=== PATIENT | male | born 1985 | race Hispanic/Latino ===

== ENCOUNTER 2020-11-15 09:40 | Inpatient (IN) | payer SELFPAY ==
[2020-11-15 11:26] LABS: Absolute Lymphocytes (CBC) 1.2 K/uL (0.7-4.9); Basophils % 0.2 % (0-1.3); Hematocrit 36.9 % (39.6-49.0); Lymphocytes % 5.9 % (15.3-44.8); RBC Red Blood Cell Count 3.92 M/uL (4.33-5.43)
[2020-11-15] MEDS ORDERED: ONDANSETRON 4 MG/2 ML VIAL ONE (11:29)
[2020-11-15] MEDS ORDERED: MORPHINE 4 MG/ML SYR ONE (11:29)
[2020-11-15] MEDS ORDERED: CEFTRIAXONE/SWI 1gm 1 GM/10 ML SYR ONE (11:30)
[2020-11-15] MEDS ORDERED: NA CHLORIDE 0.9% 1,000 ML ONE (11:30)
[2020-11-15 12:46] LABS: Potassium 3.1 mmol/L (3.5-5.1)
--- NOTE | 2020-11-15 12:57 | RAD REPORT ---
EXAM DESCRIPTION: CT - Abdomen Pelvis W Contrast - 11/15/2020 12:33 pm CLINICAL HISTORY: Abdominal pain COMPARISON: none. TECHNIQUE: Computed axial tomography of the abdomen pelvis was obtained. 100 cc Isovue-300 was admin istered intravenously. Oral contrast was not requested which limits evaluation of bowel. All CT scans are performed using dose optimization technique as appropriate and may include automated exposure control or mA/KV adjustment according to patient size. FINDINGS: Fatty liver. Spleen, pancreas, adrenal and kidneys appear unremarkable. There is no evidence of diverticulitis. Normal appendix. Probable small bilateral inguinal hernias co ntaining fat. Scrotal skin thickening. Stranding within the perineum. No abscess seen Small to moderate right hydrocele IMPRESSION: Scroll skin thickening. Stranding within the perineum. This indicates inflammation or in fection. No abscess visualized
[2020-11-15] MEDS ORDERED: FENTANYL CITR 100 MCG/2 ML ONE (13:11)
[2020-11-15 13:25] LABS: Blood Morphology Comment NOT SEEN (NOT SEEN); Platelet Estimate DECR
--- NOTE | 2020-11-15 14:07 | RAD REPORT ---
EXAM DESCRIPTION: US - Scrotum Testicles - 11/15/2020 10:43 am CLINICAL HISTORY: testicular pain Preliminary findings provided at the time of the study. COMPARISON: No comparisons FINDINGS: Testicular tissue is homogeneous with no mass lesions identifiable. Doppler evaluation cecy ws good blood flow within each testicle. Small hydroceles are present. Mild enlargement and hyperemia of each epididymis. Varicoceles are doubtful. Prominent scrotal wall thickening and edema seen. No abscess or drainable fluid collection. IMPRESSION: Pronounced scrotal wall thickening and edema. No abscess or drainable fluid collections seen. Prominent, hyperemic epididymis tissue. Normal blood flow in each testicle and no testicular mass les ion.
--- NOTE | 2020-11-15 14:15 | EDPHYS ---
Physician Documentation [facility] Name: Adithya Morales Age: 35 yrs Sex: Male : 1985 Arrival Date: 11/15/2020 Time: 09:46 Bed 15 Private MD: ED Physician Clinton Grayson HPI: 11/15 11:04 This 35 yrs old Male presents to ER via Ambulatory with complaints of kdr Testicular Swelling, Penile Pain. 11:04 The patient presents with scrotal pain, swelling, that is moderate, of the left kdr testicle, right testicle, perineum and scrotum, tenderness, that is moderate. Onset: The symptoms/episode began/occurred gradually, 2 day(s) ago. Modifying factors: The symptoms are alleviated by nothing, the symptoms are aggravated by movement. Associated signs and symptoms: Pertinent positives: chills and inguinal pain, Pertinent negatives:. Severity of symptoms: At their worst the symptoms were mild, just prior to arrival. The patient has not experienced similar symptoms in the past. The patient has not recently seen a physician. Historical: - Allergies: 10:03 No Known Allergies; dm5 - Home Meds: 10:03 None [Active]; dm5 - PMHx: 10:03 None; dm5 - PSHx: 10:03 None; dm5 - Immunization history:: Adult Immunizations unknown. - Social history:: Smoking status: Patient reports the use of cigarette tobacco products, smokes one-half pack cigarettes per day, Reported history of juuling and/or vaping. ROS: 11:04 Constitutional: Negative for fever, chills, and weight loss, Eyes: Negative for injury, kdr pain, redness, and discharge, ENT: Negative for injury, pain, and discharge, Neck: Negative for injury, pain, and swelling, Cardiovascular: Negative for chest pain, palpitations, and edema, Respiratory: Negative for shortness of breath, cough, wheezing, and pleuritic chest pain, Abdomen/GI: Negative for abdominal pain, nausea, vomiting, diarrhea, and constipation, Back: Negative for injury and pain, MS/Extremity: Negative for injury and deformity, Skin: Negative for injury, rash, and discoloration, Neuro: Negative for headache, weakness, numbness, tingling, and seizure activity. Psych: Negative for depression, anxiety, suicide ideation, homicidal ideation, and hallucinations, Allergy/Immunology: Negative for hives, rash, and allergies, Endocrine: Negative for neck swelling, polydipsia, polyuria, polyphagia, and marked weight changes, Hematologic/Lymphatic: Negative for swollen nodes, abnormal bleeding, and unusual bruising. 11:04 : Positive for penile pain, testicular pain of the perineum and scrotum. Exam: 11:04 Constitutional: This is a well developed, well nourished patient who is awake, alert, kdr and in no acute distress. Head/Face: Normocephalic, atraumatic. Eyes: Pupils equal round and reactive to light, extra-ocular motions intact. Lids and lashes normal. Conjunctiva and sclera are non-icteric and not injected. Cornea within normal limits. Periorbital areas with no swelling, redness, or edema. Neck: Trachea midline, no thyromegaly or masses palpated, and no cervical lymphadenopathy. Supple, full range of motion without nuchal rigidity, or vertebral point tenderness. No Meningismus. Chest/axilla: Normal chest wall appearance and motion. Nontender with no deformity. No lesions are appreciated. Cardiovascular: Regular rate and rhythm with a normal S1 and S2. No gallops, murmurs, or rubs. Normal PMI, no JVD. No pulse deficits. Respiratory: Lungs have equal breath sounds bilaterally, clear to auscultation and percussion. No rales, rhonchi or wheezes noted. No increased work of breathing, no retractions or nasal flaring. Abdomen/GI: Soft, non-tender, with normal bowel sounds. No distension or tympany. No guarding or rebound. No evidence of tenderness throughout. Back: No spinal tenderness. No costovertebral tenderness. Full range of motion. Skin: Warm, dry with normal turgor. Normal color with no rashes, no lesions, and no evidence of cellulitis. MS/ Extremity: Pulses equal, no cyanosis. Neurovascular intact. Full, normal range of motion. Neuro: Awake and alert, GCS 15, oriented to person, place, time, and situation. Cranial nerves II-XII grossly intact. Motor strength 5/5 in all extremities. Sensory grossly intact. Cerebellar exam normal. Normal gait. Psych: Awake, alert, with orientation to person, place and time. Behavior, mood, and affect are within normal limits. 11:04 : CVA tenderness, is absent, Male external genitalia: Patient is not circumisioned. penile discharge, is absent, swelling: of the perineum and scrotum is noted, scrotal, that is moderate, that is severe, tenderness, of the perineum is noted, that is mild. Vital Signs: 10:01 BP 120 / 81; Pulse 106; Resp 20; Temp 99.5; Pulse Ox 100% ; Weight 81.65 kg; Height 5 dm5 ft. 7 in. (170.18 cm); Pain 10/10; 13:06 BP 119 / 73; Pulse 103; Resp 16; Pulse Ox 99% ; sv 13:45 BP 110 / 66; Pulse 100; Resp 18; Pulse Ox 100% ; sv 14:30 BP 95 / 53; Pulse 99; Resp 16; Pulse Ox 100% ; sv 15:15 BP 104 / 77; Pulse 100; Resp 16; Pulse Ox 100% ; sv 10:01 Body Mass Index 28.19 (81.65 kg, 170.18 cm) dm5 MDM: 14:15 Patient medically screened. kdr 14:15 Data reviewed: vital signs, nurses notes, lab test result(s), radiologic studies. kdr Counseling: I had a detailed discussion with the patient and/or guardian regarding: the historical points, exam findings, and any diagnostic results supporting the discharge/admit diagnosis, lab results, radiology results, the need for outpatient follow up. 11/15 11:18 Order name: Urine Culture [facility] 11/15 13:24 Order name: CBC with Automated Diff EDNJ 11/15 13:26 Order name: Manual Differential EDNJ 11/15 13:29 Order name: Procalcitonin EDN[facility] 11/15 13:29 Order name: Basic Metabolic Panel EDNJ 11/15 13:29 Order name: Lactate EDN[facility] 11/15 13:38 Order name: Blood Culture EDN[facility] 11/15 13:38 Order name: Blood Culture EDN[facility] 11/15 13:38 Order name: CREATININE WHOLE BLOOD EDNJ 11/15 10:01 Order name: US Scrotum Testicles dm5 11/15 10:55 Order name: CT Abd/Pelvis - IV Contrast Only kdr 11/15 13:15 Order name: CT EDMS 11/15 13:20 Order name: Scrotum Testicles EDNJ 11/15 14:23 Order name: Basic Metabolic Panel EDNJ 11/15 14:23 Order name: Basic Metabolic Panel EDNJ 11/15 14:24 Order name: Lactate EDNJ 11/15 14:25 Order name: Magnesium EDNJ 11/15 14:25 Order name: Phosphorus EDNJ 11/15 14:25 Order name: Procalcitonin EDN[facility] 11/15 14:25 Order name: Urinalysis W/Microscopic EDN[facility] 11/15 11:39 Order name: Labs - recollect needed: please recollect all blood; Complete Time: 12:18 eb 11/15 14:24 Order name: CONS Pharmacy Consult EDNJ 11/15 14:24 Order name: CONS Pharmacy Consult EDNJ 11/15 14:24 Order name: CONS Physician Consult EDNJ 11/15 14:24 Order name: Heart Healthy EDNJ Administered Medications: 11:15 Drug: NS 0.9% 1000 ml Route: IV; Rate: 1 bolus; Site: right antecubital; sv 11:15 Drug: Zofran (Ondansetron) 4 mg Route: IVP; Site: right antecubital; sv 12:18 Follow up: Response: No adverse reaction sv 11:17 Drug: morphine 4 mg Route: IVP; Site: right antecubital; sv 12:18 Follow up: Response: No adverse reaction; RASS: Alert and Calm (0) sv 11:18 Drug: Rocephin - (cefTRIAXone) 1 grams Route: IVPB; Infused Over: 30 mins; Site: right sv antecubital; 11:20 Follow up: Response: No adverse reaction; IV Status: Completed infusion; IV Intake: 10mlsv 13:03 Drug: fentaNYL (PF) 50 mcg {Note: rass2.} Route: IVP; Site: right antecubital; sv 15:49 Drug: vancoMYCIN 1.5 grams Route: IVPB; Rate: calculated rate; Site: right antecubital; sv 16:27 Follow up: Response: No adverse reaction; IV Status: Infusion continued upon admission sv Disposition: 11/15/20 14:15 Hospitalization ordered by Maribel Durant for Inpatient Admission. Preliminary diagnosis is Scrotal Cellulitis and cellulitis of the perineum. - Bed requested for Telemetry/MedSurg (Inpatient). - Status is Inpatient Admission. sv - Condition is Fair. - Problem is new. - Symptoms have improved. Signatures: Dispatcher [employer] EDMS Carolyn Hampton, RN RN dmLiss Metzger, RN Carmita Herr RN RN Clinton Hua MD MD kdr Botello, Elizabeth eb Corrections: (The following items were deleted from the chart) 14:19 13:16 CBC+H.LAB.BRZ ordered. EDMS EDMS 14:27 13:16 BASIC METABOLIC PANEL+C.LAB.BRZ ordered. EDMS EDMS 14:27 13:16 LACTATE+C.LAB.BRZ ordered. EDMS EDMS 14:27 13:16 Procalcitonin+C.LAB.BRZ ordered. EDMS EDMS 14:27 13:16 BLOOD CULTURE*+BA.LAB.BRZ ordered. EDNJ EDMS 15:37 14:15 Hospitalization Ordered by Maribel Durant MD for Inpatient Admission. Preliminary diagnosis is Scrotal Cellulitis and cellulitis of the perineum. Bed requested for Telemetry/MedSurg (Inpatient). Status is Inpatient Admission. Condition is Fair. Problem is new. Symptoms have improved. [facility] 16:26 15:37 11/15/2020 14:15 Hospitalization Ordered by Maribel Durant MD for Inpatient sv Admission. Preliminary diagnosis is Scrotal Cellulitis and cellulitis of the perineum. Bed requested for Telemetry/MedSurg (Inpatient). Status is Inpatient Admission. Condition is Fair. Problem is new. Symptoms have improved. dw
--- NOTE | 2020-11-15 14:15 | ER ---
Nurse's Notes [facility] Name: Adithya Morales Age: 35 yrs Sex: Male : 1985 Arrival Date: 11/15/2020 Time: 09:46 Bed 15 Private MD: Diagnosis: Scrotal Cellulitis and cellulitis of the perineum Presentation: 11/15 10:01 Chief complaint: Patient states: swelling, redness and pain to testicles. Coronavirus dm5 screen: Client denies travel out of the [place] in the last 14 days. At this time, the client does not indicate any symptoms associated with coronavirus-19. Ebola Screen: Patient negative for fever greater than or equal to 101.5 degrees Fahrenheit, and additional compatible Ebola Virus Disease symptoms Patient denies exposure to infectious person. Patient denies travel to an Ebola-affected area in the 21 days before illness onset. No symptoms or risks identified at this time. Initial Sepsis Screen: Does the patient meet any 2 criteria? HR > 90 bpm. Does the patient have a suspected source of infection? No. Patient's initial sepsis screen is negative. Risk Assessment: Do you want to hurt yourself or someone else? Patient reports no desire to harm self or others. Onset of symptoms was November 13, 2020. 10:01 Method Of Arrival: Ambulatory dm5 10:01 Acuity: NAYELY 2 dm5 Triage Assessment: 10:03 General: Appears uncomfortable, Behavior is calm, cooperative. Pain: Complains of pain dm5 in scrotum Pain does not radiate. Pain currently is 10 out of 10 on a pain scale. Pain began 2-3 days ago. Is continuous. Historical: - Allergies: 10:03 No Known Allergies; dm5 - Home Meds: 10:03 None [Active]; dm5 - PMHx: 10:03 None; dm5 - PSHx: 10:03 None; dm5 - Immunization history:: Adult Immunizations unknown. - Social history:: Smoking status: Patient reports the use of cigarette tobacco products, smokes one-half pack cigarettes per day, Reported history of juuling and/or vaping. Screenin:15 Abuse screen: Denies threats or abuse. Denies injuries from another. Nutritional sv screening: No deficits noted. Tuberculosis screening: No symptoms or risk factors identified. Fall Risk None identified. Assessment: 10:26 Reassessment: Pt currently in US. sv 11:15 General: Appears in no apparent distress. uncomfortable, well groomed, well developed, sv Behavior is calm, cooperative, appropriate for age. Pain: Complains of pain in scrotum Pain currently is 10 out of 10 on a pain scale. Pain began 2-3 days ago. Is continuous. Neuro: Level of Consciousness is awake, alert, obeys commands, Oriented to person, place, time, situation, Moves all extremities. Full function Gait is steady. Respiratory: Airway is patent Respiratory effort is even, unlabored, Respiratory pattern is regular, symmetrical. Derm: Skin is intact, Skin is pink, warm \T\ dry. Reports redness and swelling to the scrotum. 15:42 Reassessment: Attempted to call report, nurse unavailable. sv Vital Signs: 10:01 BP 120 / 81; Pulse 106; Resp 20; Temp 99.5; Pulse Ox 100% ; Weight 81.65 kg; Height 5 dm5 ft. 7 in. (170.18 cm); Pain 10/10; 13:06 BP 119 / 73; Pulse 103; Resp 16; Pulse Ox 99% ; sv 13:45 BP 110 / 66; Pulse 100; Resp 18; Pulse Ox 100% ; sv 14:30 BP 95 / 53; Pulse 99; Resp 16; Pulse Ox 100% ; sv 15:15 BP 104 / 77; Pulse 100; Resp 16; Pulse Ox 100% ; sv 10:01 Body Mass Index 28.19 (81.65 kg, 170.18 cm) dm5 ED Course: 09:46 Patient arrived in ED. rg4 09:49 Clinton Grayson MD is Attending Physician. kdr 10:03 Triage completed. dm5 10:04 Arm band placed on left wrist. dm5 10:26 Liss Whipple RN is Primary Nurse. sv 10:26 Patient taken to ultrasound. via wheelchair. is 11:15 Patient has correct armband on for positive identification. Placed in gown. Bed in low sv position. Call light in reach. Pulse ox on. NIBP on. 11:17 Inserted saline lock: 20 gauge in right antecubital area, using aseptic technique. ll1 Blood collected. 12:[address] via wheelchair. sv 12:16 Lab(s) recollected, by tanbark laborer, sent to lab. sv 13:20 Scrotum Testicles In Process Unspecified. EDMS 14:14 Maribel Durant MD is Hospitalizing Provider. kdr 14:20 CREATININE WHOLE BLOOD Sent. sv 14:20 Basic Metabolic Panel Sent. sv 14:20 Lactate Sent. sv 14:20 CT Abd/Pelvis - IV Contrast Only Sent. sv 14:20 US Scrotum Testicles Sent. sv 15:56 No provider procedures requiring assistance completed. Patient admitted, IV remains in sv place. intact. Administered Medications: 11:15 Drug: NS 0.9% 1000 ml Route: IV; Rate: 1 bolus; Site: right antecubital; sv 11:15 Drug: Zofran (Ondansetron) 4 mg Route: IVP; Site: right antecubital; sv 12:18 Follow up: Response: No adverse reaction sv 11:17 Drug: morphine 4 mg Route: IVP; Site: right antecubital; sv 12:18 Follow up: Response: No adverse reaction; RASS: Alert and Calm (0) sv 11:18 Drug: Rocephin - (cefTRIAXone) 1 grams Route: IVPB; Infused Over: 30 mins; Site: right sv antecubital; 11:20 Follow up: Response: No adverse reaction; IV Status: Completed infusion; IV Intake: 10mlsv 13:03 Drug: fentaNYL (PF) 50 mcg {Note: rass2.} Route: IVP; Site: right antecubital; sv 15:49 Drug: vancoMYCIN 1.5 grams Route: IVPB; Rate: calculated rate; Site: right antecubital; sv 16:27 Follow up: Response: No adverse reaction; IV Status: Infusion continued upon admission sv Intake: 11:20 IV: 10ml; Total: 10ml. sv Outcome: 14:15 Decision to Hospitalize by Provider. kdr 16:25 Admitted to Med/surg accompanied by tech, via stretcher, with chart, Report called to Tootie RANGEL 16:25 Condition: stable 16:25 Instructed on the need for admit. 16:26 Patient left the ED. sv Signatures: Dispatcher [employer] EDWI Carolyn Hampton RN RN dm5 Liss Whipple RN RN Clinton Grayson MD MD kdr Garcia, Rubi rg4 Sims, Cynthia is Sejal Grossman, RN RN ll1
[2020-11-15] MEDS ORDERED: ONDANSETRON 4 MG/2 ML VIAL IV PRN (14:19)
[2020-11-15] MEDS ORDERED: MORPHINE 4 MG/ML SYR IV PRN (14:19)
[2020-11-15] MEDS ORDERED: VANCOMYCIN/NS 1 gm 1 GM/250 ML BAG IVPB SCH (15:00)
[2020-11-15] MEDS ORDERED: VANCOMYCIN 1.5 GM in NA CHLORIDE 0.9% 500 ML IVPB ONE (16:00)
[2020-11-15] MEDS: NA CHLORIDE 0.9% 1,000 ML IV SCH (17:02)
[2020-11-15 17:30] VITALS: BMI 27.8
[2020-11-15] MEDS: PIPER/TAZO/NS 4.5gm 4.5 GM/100 ML BAG IVPB SCH (18:37)
[2020-11-15 19:08] LABS: Urine Appearance CLEAR; Urine Bilirubin NEGATIVE (NEG); Urine Blood TRACE (NEG); Urine Color YELLOW; Urine Glucose NEGATIVE (NEG); Urine Protein 1+ (NEG); Urine Specific Gravity 1.025 (1.005-1.030)
[2020-11-15 19:24] LABS: Urine Bacteria NONE SEEN /HPF (NONE SEEN)
[2020-11-15] MEDS ORDERED: INFLUENZA VACCINE (for 3y+) 0.5 ML DOSE IMVAC ONE (20:00)
[2020-11-15] MEDS: ACETAMINOPHEN 500 MG TAB PO PRN (21:14)
--- NOTE | 2020-11-15 21:15 | P.CNS ---
Date of Consult: 11/15/20 PC: This 35-year-old male presents emergency room with severe testicular pain for diagnosis and treatment. HPC: Patient apparently works offshore. Noticed cm having increasing pain is under in his testicles. Hurts when he stands up in their hanging. PMH: Negative PSHx: Negative SOC: Offshore over current SYS REVIEW: No cough, wheeze, shortness of breath. No discharge or urinary complaints. O/E awake alert stable HEENT: Not Carlos Alberto Chest: Chest movement equal bile ABD: Saw : The patient has bilateral swollen testicles. Tender to the touch. The inspection of the perineum there is a small wound but no active draining or surrounding redness. Boluses pain appears to be in his scrotum. LOCO: Intact DATA: CT scan shows swelling of the scrotum and epididymis. Some small stranding in perineum. No crepitus IMPRESSION: I do not feel that this is an abscess or require surgical intervention right now. PLAN: I am going to make the patient NPO been a, explained to him that will reinvestigate tomorrow morning and see what we find. I cannot truly stated this is a perineal and perirectal abscess. It appears be more located in the scrotum with some reactive changes due to swelling in the perineum. She does have clinically to small hernias. The stable at the moment, I do not suspect any Fourniers
[2020-11-15] MEDS ORDERED: PIPERACIL/TAZO 4.5 GM VIAL IV ONE (21:28)
[2020-11-16] MEDS: NA CHLORIDE 0.9% 100 ML ONE ×2 (00:19→00:20)
[2020-11-16] MEDS: PIPER/TAZO/NS 4.5gm 4.5 GM/100 ML BAG IVPB SCH ×3 (01:37→17:38)
[2020-11-16] MEDS: NA CHLORIDE 0.9% 1,000 ML IV SCH ×3 (03:38→16:14)
[2020-11-16] MEDS ORDERED: VANCOMYCIN 1.5 GM in NA CHLORIDE 0.9% 500 ML IVPB ONE (05:00)
[2020-11-16 06:13] LABS: Absolute Lymphocytes (CBC) 0.7 K/uL (0.7-4.9); Basophils % 0.1 % (0-1.3); Hematocrit 30.7 % (39.6-49.0); MPV 8.8 fL (7.6-11.3); RBC Red Blood Cell Count 3.31 M/uL (4.33-5.43)
[2020-11-16 06:26] LABS: Magnesium 2.1 mg/dL (1.8-2.4); Phosphorus 1.4 mg/dL (2.5-4.9)
--- NOTE | 2020-11-16 06:36 | P.HP ---
Certification for Inpatient Patient admitted to: Inpatient With expected LOS: >2 Midnights Patient will require the following post-hospital care: None Practitioner: I am a practitioner with admitting privileges, knowledge of patient current condition, hospital course, and medical plan of care. 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 The cellulitis extended from the perineal region. Reviewed the CT scan with Radiology and no identification of an abscess. Spoke with Urology and they recommended admission for observation. Will go ahead and start patient on IV antibiotic therapy. Will check a hemoglobin A1c as a blood sugars are in the mid 1 100s. Patient with no history of diabetes. If his blood sugars remained stable then we will no longer do Accu-Cheks. Otherwise, patient denies any trauma. He does have an area that looks like it was scratched where the source of the cellulitis could be explained. Patient could also have perirectal extension. General surgery will be consulted as well. Allergies No Known Allergies Allergy (Verified 11/15/20 17:03) Home Medications: NK [No Home Meds] 11/15/20 - Past Medical/Surgical History Has patient received pneumonia vaccine in the past: No Diabetic: No Past Medical History: Patient denies medical history Past Surgical History: Patient denies surgical history - Family History Mother Medical History: Hypertension, Diabetes - Social History Smoking Status: Current every day smoker Alcohol use: Yes CD- Drugs: No Caffeine use: No Place of Residence: Home Review of Systems 10-point ROS is otherwise unremarkable Physical Examination - Vital Signs Temperature: 98.4 F Blood Pressure: 109/59 Pulse: 106 Respirations: 20 Pulse Ox (%): 96 - Physical Exam General: Alert, In no apparent distress, Oriented x3 HEENT: Atraumatic, PERRLA, Mucous membr. moist/pink, EOMI, Sclerae nonicteric Neck: Supple, 2+ carotid pulse no bruit, No LAD, Without JVD or thyroid abnormality Respiratory: Clear to auscultation bilaterally, Normal air movement Cardiovascular: Regular rate/rhythm, Normal S1 S2, No murmurs Gastrointestinal: Normal bowel sounds, Soft and benign, Non-distended, No tenderness, No rebound, No guarding Musculoskeletal: No clubbing, No swelling, No tenderness Integumentary: No rashes, Tenderness/swelling, Erythema Neurological: Normal gait, Normal speech, Normal strength at 5/5 x4 extr, Normal tone, Normal affect Lymphatics: No axilla or inguinal lymphadenopathy - Studies Laboratory Data (last 24 hrs) 11/15/20 12:12: Sodium 132 L, Potassium 3.1 L, BUN 13, Creatinine 1.12, Glucose 111 H 11/15/20 11:10: WBC 20.0 H, Hgb 12.9 L, Hct 36.9 L, Plt Count 105 L 11/15/20 10:55: Sodium Cancelled, Potassium Cancelled, BUN Cancelled, Creatinine Cancelled, Glucose Cancelled 11/15/20 10:55: WBC Cancelled, Hgb Cancelled, Hct Cancelled, Plt Count Cancelled Male Exam - Male Exam Scrotum: Edema, Tenderness Assessment & Plan - Problems (Diagnosis) (1) Cellulitis of scrotum Current Visit: Yes Status: Acute (2) Hyperglycemia Current Visit: Yes Status: Acute - Plan 1. Continue with IV antibiotic 2. Continue with monitoring wound closely 3. Urology consultation along with general surgical consultation 4. Gentle IV hydration 5. Monitor CBC 6. Strict blood sugar monitoring; check A1c 7. Pain control 8. GI and DVT prophylaxis Discharge Plan: Home Plan to discharge in: Greater than 2 days - Advance Directives Does patient have a Living Will: No Does patient have a Durable POA for Healthcare: No - Code Status/Comfort Care Code Status Assessed: Yes Code Status: Full Code Critical Care: No Time Spent Managing PTS Care (In Minutes): 45
[2020-11-16 07:55] LABS: Blood Morphology Comment NOT SEEN (NOT SEEN); Dohle Bodies PRESENT; Platelet Estimate DECR
[2020-11-16] MEDS: ACETAMINOPHEN 500 MG TAB PO PRN ×2 (08:44→16:13)
[2020-11-16] MEDS ORDERED: POTASSIUM PHOS 30 MM in NA CHLORIDE 0.9% 500 ML IV ONE (09:00)
--- NOTE | 2020-11-16 10:54 | P.PN ---
Subjective Date of Service: 11/16/20 Chief Complaint: scrotal cellulitis Subjective: No new changes, No C/O voiced Review of Systems 10-point ROS is otherwise unremarkable Physical Examination - Vital Signs Temperature: 98.8 F Blood Pressure: 119/65 Pulse: 113 Respirations: 16 Pulse Ox (%): 95 - Physical Exam General: Alert, In no apparent distress HEENT: Atraumatic, Normocephalic Neck: Supple Respiratory: Clear to auscultation bilaterally, Normal air movement Cardiovascular: Normal pulses, Regular rate/rhythm, Normal S1 S2 Capillary refill: <2 Seconds Gastrointestinal: Soft and benign, Non-distended Musculoskeletal: No clubbing, No swelling Integumentary: Tenderness/swelling, Erythema, Warmth Neurological: Normal speech, Normal strength at 5/5 x4 extr Lymphatics: Other (No generalised lymphadenopathy ) External genitalia: Edema, Tenderness - Studies Laboratory Data (last 24 hrs) 11/15/20 12:12: Sodium 132 L, Potassium 3.1 L, BUN 13, Creatinine 1.12, Glucose 111 H 11/15/20 11:10: WBC 20.0 H, Hgb 12.9 L, Hct 36.9 L, Plt Count 105 L 11/15/20 10:55: Sodium Cancelled, Potassium Cancelled, BUN Cancelled, Creatinine Cancelled, Glucose Cancelled 11/15/20 10:55: WBC Cancelled, Hgb Cancelled, Hct Cancelled, Plt Count Cancelled Microbiology Data (last 24 hrs): 11/15/20 12:16 Blood - Blood Anaerobic Blood Culture - Final Assessment & Plan - Problems (Diagnosis) (1) Cellulitis of scrotum Current Visit: Yes Status: Acute (2) Hyperglycemia Current Visit: Yes Status: Acute Physician Review Additional Text: Monitor closely Pain control Continue IV antibiotics Scrotal edema slightly better but still present Appreciate help from surgery and consultants awaiting further recommendations from urology A1c is 5.1 Continue hydration Leukocytosis better Cultures negative so far GI and DVT prophylaxis Time Spent Managing Pts Care (In Minutes): 42
--- NOTE | 2020-11-16 13:47 | P.DS ---
Admission Date: 11/15/20 Discharge Date: 11/16/20 Disposition: ROUTINE DISCHARGE Discharge Condition: GOOD Reason for Admission: scrotal cellulitis - Problems (1) Cellulitis of scrotum Current Visit: Yes Status: Acute (2) Hyperglycemia Current Visit: Yes Status: Acute Vital Signs/Physical Exam: Temp Pulse Resp BP Pulse Ox 98.8 F 113 H 16 119/65 95 11/16/20 12:34 11/16/20 12:34 11/16/20 12:34 11/16/20 12:34 11/16/20 12:34 Laboratory Data at Discharge: WBC 11.4 K/uL (4.3-10.9) H D 11/16/20 06:00 Hgb 11.0 g/dL (13.6-17.9) L 11/16/20 06:00 Hct 30.7 % (39.6-49.0) L D 11/16/20 06:00 Plt Count 82 K/uL (152-406) L D 11/16/20 06:00 Sodium 138 mmol/L (136-145) 11/16/20 06:00 Potassium 3.0 mmol/L (3.5-5.1) L 11/16/20 06:00 BUN 9 mg/dL (7-18) 11/16/20 06:00 Creatinine 1.06 mg/dL (0.55-1.3) 11/16/20 06:00 Glucose 103 mg/dL (74-106) 11/16/20 06:00 Phosphorus 1.4 mg/dL (2.5-4.9) L 11/16/20 06:00 Magnesium 2.1 mg/dL (1.8-2.4) 11/16/20 06:00 Home Medications: Ciprofloxacin HCl [Cipro 500 MG Tablet] 500 mg PO BID 14 Days #28 tab 11/16/20 metroNIDAZOLE [Flagyl] 500 mg PO Q8H 14 Days #42 tablet 11/16/20 New Medications: Ciprofloxacin HCl [Cipro 500 MG Tablet] 500 mg PO BID 14 Days #28 tab metroNIDAZOLE [Flagyl] 500 mg PO Q8H 14 Days #42 tablet Followup: NONE,NONE [Primary Care Provider] - Lacho Singleton MD [ACTIVE - CAN ADMIT] -
[2020-11-16] MEDS: KCL 20 MEQ/100 mL IVPB 20 MEQ/100 ML BAG IV SCH ×2 (21:16→23:19)
[2020-11-16 21:56] VITALS: O2SAT 98
[2020-11-17] MEDS: ACETAMINOPHEN 500 MG TAB PO PRN (00:57)
[2020-11-17] MEDS: KCL 20 MEQ/100 mL IVPB 20 MEQ/100 ML BAG IV SCH (00:59)
[2020-11-17] MEDS: PIPER/TAZO/NS 4.5gm 4.5 GM/100 ML BAG IVPB SCH ×2 (02:12→10:00)
[2020-11-17] MEDS: NA CHLORIDE 0.9% 1,000 ML IV SCH (06:19)
[2020-11-17] MEDS ORDERED: POTASSIUM CL SA 10 MEQ TAB PO ONE (09:00)
--- NOTE | 2020-11-17 09:29 | P.DS ---
Admission Date: 11/15/20 Discharge Date: 11/17/20 Disposition: ROUTINE DISCHARGE Discharge Condition: GOOD Reason for Admission: scrotal cellulitis - Problems (1) Cellulitis of scrotum Status: Acute (2) Hyperglycemia Status: Acute Brief History of Present Illness: 35 year old male with past medical history of hypertension admitted with swelling and pain in the scrotal region. CT abdomen pelvis was consistent with scrotal cellulitis with no abscess . Patient was admitted for IV antibiotics and pain control. General surgery and urology were consulted. Hospital Course: The patient was started on IV antibiotics along with pain control. a scrotal ultrasound was done along with CT of the abdomen pelvis which was consistent with scrotal cellulitis with no abscess. General surgery was consulted who recommended conservative management with antibiotics and pain control and follow up as an outpatient. patient's leukocytosis was trending down and is being discharged home today in a stable condition with advice to follow up with PCP in 1 week and also with his general surgery in 1-2 weeks and urology as outpatient. Vital Signs/Physical Exam: Temp Pulse Resp BP Pulse Ox 97.6 F 77 20 100/59 L 100 11/17/20 04:00 11/17/20 04:00 11/17/20 04:00 11/17/20 04:00 11/17/20 04:00 General: Alert, In no apparent distress HEENT: Atraumatic, Normocephalic Neck: Supple, 2+ carotid pulse no bruit Respiratory: Clear to auscultation bilaterally, Normal air movement Cardiovascular: Regular rate/rhythm, Normal S1 S2 Capillary refill: <2 Seconds Gastrointestinal: Soft and benign, W/out hepatosplenomegaly Musculoskeletal: No clubbing, No swelling Integumentary: No rashes Neurological: Normal speech, Normal strength at 5/5 x4 extr Lymphatics: No axilla or inguinal lymphadenopathy External genitalia: Edema, Tenderness Laboratory Data at Discharge: WBC 11.4 K/uL (4.3-10.9) H D 11/16/20 06:00 Hgb 11.0 g/dL (13.6-17.9) L 11/16/20 06:00 Hct 30.7 % (39.6-49.0) L D 11/16/20 06:00 Plt Count 82 K/uL (152-406) L D 11/16/20 06:00 Sodium 138 mmol/L (136-145) 11/16/20 06:00 Potassium 3.4 mmol/L (3.5-5.1) L 11/17/20 05:40 BUN 9 mg/dL (7-18) 11/16/20 06:00 Creatinine 1.06 mg/dL (0.55-1.3) 11/16/20 06:00 Glucose 103 mg/dL (74-106) 11/16/20 06:00 Phosphorus 3.1 mg/dL (2.5-4.9) D 11/17/20 05:40 Magnesium 2.1 mg/dL (1.8-2.4) 11/16/20 06:00 Home Medications: Ciprofloxacin HCl [Cipro 500 MG Tablet] 500 mg PO BID 14 Days #28 tab 11/16/20 metroNIDAZOLE [Flagyl] 500 mg PO Q8H 14 Days #42 tablet 11/16/20 Ibuprofen [Motrin] 400 mg PO TID #30 tab 11/17/20 Ketorolac [Toradol] 10 mg FT Q6H PRN #20 tab 11/17/20 New Medications: Ciprofloxacin HCl [Cipro 500 MG Tablet] 500 mg PO BID 14 Days #28 tab metroNIDAZOLE [Flagyl] 500 mg PO Q8H 14 Days #42 tablet Ibuprofen [Motrin] 400 mg PO TID #30 tab Ketorolac [Toradol] 10 mg FT Q6H PRN #20 tab PRN Reason: Pain Scale 8-10 (Severe) Diet: Regular Activity: Scrotal support Followup: Lacho Singleton MD [ACTIVE - CAN ADMIT] - NONE,NONE [Primary Care Provider] - Juventino Mensah [COURTESY - CAN ADMIT] - Time spent managing pt's care (in minutes): 40
[2020-11-17 09:37] VITALS: BP 93/59
[2020-11-17 09:40] VITALS: TEMP 99.4
== END 2020-11-17 10:47 | disposition home or self-care (01) | DRG 728 ==
LOC: ER 09:40 → ERHOLD 14:25 → 2ND 16:02
PROVIDERS: ADMIT Hospitalist; ATTEND Hospitalist
DX: N49.2 Inflammatory disorders of scrotum (principal); F17.210 Nicotine dependence, cigarettes, uncomplicated; I10 Essential (primary) hypertension; R73.9 Hyperglycemia, unspecified; Z79.899 Other long term (current) drug therapy; Z20.828 Contact with and (suspected) exposure to other viral communicable diseases
CPT/HCPCS: 36415; 74177; 76870; 80048; 80202; 81001; 82565; 82947; 83036; 83605; 83735; 84100; 84132; 84145; 85025; 87040; 96365; 96375; 99285; J0696; J2405; J3010; J3370; J3480; J7030; J7040; Q9967; U0003